=== PATIENT | female | born 1955 | race Two or more races ===

== ENCOUNTER 2017-03-01 09:26 | Inpatient (IN) | payer MEDICARE, MEDICAID ==
[~2017-03-01] VITALS: Ht 162.6 cm; Wt 68.5 kg
[2017-03-01] MEDS ORDERED: Sodium Chloride 500ML 500 ML IV ONE (09:28)
[2017-03-01 09:31] VITALS: BP 141/69
--- NOTE | 2017-03-01 09:36 | Emergency Room Report ---
History of Present Illness General Chief Complaint: Seizure Source: Patient, Medical Record, EMS Present Illness HPI Patient presents with paramedics were reports of seizure activity Patient is from senior care it was witnessed to have tonic-clonic seizure Patient reports that she was smoking heavily than usual Denies any chest pain Denies any headache patient did have trauma to the left tongue denies any focal weakness denies any neuropathy Denies any nausea vomiting Patient's history has been reviewed for history of seizures Allergies: Coded Allergies: PENICILLINS (Verified Allergy, Unknown, 03/01/17) Patient History Past Medical History: see triage record Pertinent Family History: none Last Menstrual Period: na Now: No Reviewed Nursing Documentation: PMH: Agreed, PSxH: Agreed Nursing Documentation-PMH Past Medical History: No History, Except For Hx COPD: Yes History Of Psychiatric Problem: Yes - depression, etoh abuse, insomnia, anxiety , paranoid schizophrenia Review of Systems All Other Systems: negative except mentioned in HPI Physical Exam Vital Signs Date Time Temp Pulse Resp B/P (MAP) Pulse Ox O2 Delivery O2 Flow Rate FiO2 03/01/17 09:16 98.4 114 18 141/69 98 Room Air Sp02 EP Interpretation: reviewed, normal General Appearance: well appearing, no apparent distress Head: normocephalic, atraumatic Eyes: bilateral eye PERRL, bilateral eye EOMI ENT: hearing grossly normal, normal pharynx, TMs + canals normal, uvula midline , other - trauma to the left anterior tongue Neck: full range of motion, supple, no meningismus, no bony tend Respiratory: lungs clear, normal breath sounds, no rhonchi, no respiratory distress, no retraction, no accessory muscle use Cardiovascular #1: normal peripheral pulses, regular rate, rhythm, no edema, no gallop, no JVD, no murmur Gastrointestinal: normal bowel sounds, non tender, soft, no mass, no organomegaly, non-distended, no guarding, no hernia, no pulsatile mass, no rebound Genitourinary: no CVA tenderness Musculoskeletal: normal inspection Neurologic: oriented x3, responsive, 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, motor strength/ tone normal, sensory intact Psychiatric: mood/affect normal Skin: normal color, no rash, warm/dry, palpation normal Lymphatic: normal inspection, no adenopathy Medical Decision Making Diagnostic Impression: Primary Impression: Seizure Additional Impression: New onset seizure ER Course Patient is a fairly complex patient with multiple differential to consideration including but not limited to cardiac cardiopulmonary and vascular emergencies, neurosurgical neurological pathology as well Patient's CT head along with baseline labs were appropriate Patient is provided with Lisseth here in the ER given that this is a new onset and the patient's receptors patient is admitted for further care Labs Test 03/01/17 09:29 03/01/17 09:34 Urine Color Pale yellow Urine Appearance Clear Urine pH 5 (4.5-8.0) Urine Specific [place] 1.015 (1.005-1.035) Urine Protein 1+ (NEGATIVE) Urine Glucose (UA) Negative (NEGATIVE) Urine Ketones Negative (NEGATIVE) Urine Occult Blood 2+ (NEGATIVE) Urine Nitrite Negative (NEGATIVE) Urine Bilirubin Negative (NEGATIVE) Urine Urobilinogen Normal MG/DL (0.0-1.0) Urine Leukocyte Esterase Negative (NEGATIVE) Urine RBC 2-4 /HPF (0 - 2) Urine WBC 0-2 /HPF (0 - 2) Urine Squamous Epithelial Cells Few /LPF (NONE/OCC) Urine Bacteria Few /HPF (NONE) White Blood Count 13.0 K/UL (4.8-10.8) Red Blood Count 4.35 M/UL (4.20-5.40) Hemoglobin 12.1 G/DL (12.0-16.0) Hematocrit 38.2 % (37.0-47.0) Mean Corpuscular Volume 88 FL (80-99) Mean Corpuscular Hemoglobin 27.7 PG (27.0-31.0) Mean Corpuscular Hemoglobin Concent 31.6 G/DL (32.0-36.0) Red Cell Distribution Width 15.4 % (11.6-14.8) Platelet Count 338 K/UL (150-450) Mean Platelet Volume 8.0 FL (6.5-10.1) Neutrophils (%) (Auto) 52.6 % (45.0-75.0) Lymphocytes (%) (Auto) 37.9 % (20.0-45.0) Monocytes (%) (Auto) 6.6 % (1.0-10.0) Eosinophils (%) (Auto) 1.0 % (0.0-3.0) Basophils (%) (Auto) 1.9 % (0.0-2.0) Sodium Level 137 MMOL/L (136-145) Potassium Level 3.8 MMOL/L (3.5-5.1) Chloride Level 101 MMOL/L (98-107) Carbon Dioxide Level 23 MMOL/L (21-32) Anion Gap 14 mmol/L (5-15) Blood Urea Nitrogen 18 mg/dL (7-18) Creatinine 1.0 MG/DL (0.55-1.30) Estimat Glomerular Filtration Rate 56.8 mL/min (>60) Glucose Level 155 MG/DL (74-106) Calcium Level 8.3 MG/DL (8.5-10.1) Total Bilirubin 0.2 MG/DL (0.2-1.0) Aspartate Amino Transf (AST/SGOT) 28 U/L (15-37) Alanine Aminotransferase (ALT/SGPT) 55 U/L (12-78) Alkaline Phosphatase 79 U/L (46-116) Total Creatine Kinase 128 U/L (26-308) Creatine Kinase MB 1.8 NG/ML (0.0-3.6) Creatine Kinase MB Relative Index 1.4 Troponin I 0.000 ng/mL (0.000-0.056) Total Protein 8.2 G/DL (6.4-8.2) Albumin 3.7 G/DL (3.4-5.0) Globulin 4.5 g/dL Albumin/Globulin Ratio 0.8 (1.0-2.7) Lipase 113 U/L (73-393) Labs Test 03/01/17 09:29 03/01/17 09:34 Urine Color Pale yellow Urine Appearance Clear Urine pH 5 (4.5-8.0) Urine Specific [place] 1.015 (1.005-1.035) Urine Protein 1+ (NEGATIVE) Urine Glucose (UA) Negative (NEGATIVE) Urine Ketones Negative (NEGATIVE) Urine Occult Blood 2+ (NEGATIVE) Urine Nitrite Negative (NEGATIVE) Urine Bilirubin Negative (NEGATIVE) Urine Urobilinogen Normal MG/DL (0.0-1.0) Urine Leukocyte Esterase Negative (NEGATIVE) Urine RBC 2-4 /HPF (0 - 2) Urine WBC 0-2 /HPF (0 - 2) Urine Squamous Epithelial Cells Few /LPF (NONE/OCC) Urine Bacteria Few /HPF (NONE) White Blood Count 13.0 K/UL (4.8-10.8) Red Blood Count 4.35 M/UL (4.20-5.40) Hemoglobin 12.1 G/DL (12.0-16.0) Hematocrit 38.2 % (37.0-47.0) Mean Corpuscular Volume 88 FL (80-99) Mean Corpuscular Hemoglobin 27.7 PG (27.0-31.0) Mean Corpuscular Hemoglobin Concent 31.6 G/DL (32.0-36.0) Red Cell Distribution Width 15.4 % (11.6-14.8) Platelet Count 338 K/UL (150-450) Mean Platelet Volume 8.0 FL (6.5-10.1) Neutrophils (%) (Auto) 52.6 % (45.0-75.0) Lymphocytes (%) (Auto) 37.9 % (20.0-45.0) Monocytes (%) (Auto) 6.6 % (1.0-10.0) Eosinophils (%) (Auto) 1.0 % (0.0-3.0) Basophils (%) (Auto) 1.9 % (0.0-2.0) Sodium Level 137 MMOL/L (136-145) Potassium Level 3.8 MMOL/L (3.5-5.1) Chloride Level 101 MMOL/L (98-107) Carbon Dioxide Level 23 MMOL/L (21-32) Anion Gap 14 mmol/L (5-15) Blood Urea Nitrogen 18 mg/dL (7-18) Creatinine 1.0 MG/DL (0.55-1.30) Estimat Glomerular Filtration Rate 56.8 mL/min (>60) Glucose Level 155 MG/DL (74-106) Calcium Level 8.3 MG/DL (8.5-10.1) Total Bilirubin 0.2 MG/DL (0.2-1.0) Aspartate Amino Transf (AST/SGOT) 28 U/L (15-37) Alanine Aminotransferase (ALT/SGPT) 55 U/L (12-78) Alkaline Phosphatase 79 U/L (46-116) Total Creatine Kinase 128 U/L (26-308) Creatine Kinase MB 1.8 NG/ML (0.0-3.6) Creatine Kinase MB Relative Index 1.4 Troponin I 0.000 ng/mL (0.000-0.056) Total Protein 8.2 G/DL (6.4-8.2) Albumin 3.7 G/DL (3.4-5.0) Globulin 4.5 g/dL Albumin/Globulin Ratio 0.8 (1.0-2.7) Lipase 113 U/L (73-393) Rhythm Strip Diag. Results EP Interpretation: yes Rate: 78 Rhythm: NSR, no PVC's, no ectopy Chest X-Ray Diagnostic Results Chest X-Ray Diagnostic Results : Chest X-Ray Ordered: Yes # of Views/Limited/Complete: 1 View Indication: Chest Pain EP Interpretation: Yes Interpretation: no consolidation, no effusion, no pneumothorax, other Impression: No acute disease Electronically Signed by: Amish Negron, DO CT/MRI/US Diagnostic Results CT/MRI/US Diagnostic Results : Impression CT head: no acute disease Last Vital Signs Date Time Temp Pulse Resp B/P (MAP) Pulse Ox O2 Delivery O2 Flow Rate FiO2 03/01/17 09:16 98.4 114 18 141/69 98 Room Air Status: improved Disposition: ADMITTED INPATIENT Condition: Serious AMISH NEGRON D.O. Mar 01, 2017 09:35
[2017-03-01 09:51] LABS: BASOPHILS % (AUTO) 1.9 % (0.0-2.0); HEMATOCRIT 38.2 % (37.0-47.0); HEMOGLOBIN 12.1 G/DL (12.0-16.0); LYMPHOCYTES % (AUTO) 37.9 % (20.0-45.0); MEAN CORPUSCULAR VOLUME 88 FL (80-99); MONOCYTES % (AUTO) 6.6 % (1.0-10.0); NEUTROPHILS % (AUTO) 52.6 % (45.0-75.0); PLATELET COUNT 338 K/UL (150-450); RED BLOOD COUNT 4.35 M/UL (4.20-5.40); RED CELL DISTRIBUTION WIDTH 15.4 % (11.6-14.8)
[2017-03-01 10:03] LABS: ANION GAP 14 mmol/L (5-15); BLOOD UREA NITROGEN 18 mg/dL (7-18); CALCIUM 8.3 MG/DL (8.5-10.1); CARBON DIOXIDE 23 MMOL/L (21-32); CHLORIDE 101 MMOL/L (98-107); POTASSIUM 3.8 MMOL/L (3.5-5.1); SODIUM 137 MMOL/L (136-145)
--- NOTE | 2017-03-01 10:10 | Diagnostic Imaging Report ---
Indication: Seizure Technique: Continuous helical CT scanning of the head was performed utilizing automated exposure control without intravenous contrast material. Axial and coronal reconstructions were obtained. Comparison: None CT dose: Total DLP 1245.89 mGycm; CTDI vol 70.38 mGy Findings: There is no acute intracranial hemorrhage, mass effect or cortical edema. The ventricles, cisterns and sulci are within normal limits for age. The posterior fossa and fourth ventricle are unremarkable. Sellar and suprasellar regions are grossly unremarkable. Visualized mastoid air cells and paranasal sinuses are unremarkable. No focal lesions of the bony calvarium or soft tissues of the scalp are seen. Impression: No evidence of acute intracranial hemorrhage, mass effect or cortical edema. MRI may be obtained for more sensitive evaluation as clinically indicated. The CT scanner at [facility] is accredited by the [employer] and the scans are performed using protocols designed to limit radiation exposure to as low as reasonably achievable to attain images of sufficient resolution adequate for diagnostic evaluation.
--- NOTE | 2017-03-01 10:12 | Diagnostic Imaging Report ---
Indication: Chest pain Technique: XRAY Chest 1v Comparison: None Findings: Heart size and mediastinal contours are within normal limits given technique. There is no focal consolidation, pneumothorax or pleural effusion. Scoliosis with degenerative change of the thoracic spine. No acute osseous abnormality seen. Impression: No radiographic evidence of acute cardiopulmonary disease.
[2017-03-01 10:19] LABS: ALANINE AMINOTRANSFERASE 55 U/L (12-78); ALBUMIN 3.7 G/DL (3.4-5.0); ALBUMIN/GLOBULIN RATIO 0.8 (1.0-2.7); ALKALINE PHOSPHATASE 79 U/L (46-116); ASPARTATE AMINO TRANSFERASE 28 U/L (15-37); BILIRUBIN,TOTAL 0.2 MG/DL (0.2-1.0); CKMB 1.8 NG/ML (0.0-3.6); CREATINE KINASE 128 U/L (26-308)
[2017-03-01 10:28] LABS: APPEARANCE,URINE CLEAR; BILIRUBIN, URINE NEGATIVE (NEGATIVE); COLOR,URINE PALE YELLOW; GLUCOSE, URINE (UA) NEGATIVE (NEGATIVE); KETONES,URINE NEGATIVE (NEGATIVE); LEUKOCYTE ESTERASE ,URINE NEGATIVE (NEGATIVE); NITRITE,URINE NEGATIVE (NEGATIVE); PH,URINE 5 (4.5-8.0); PROTEIN,URINE 1+ (NEGATIVE); UROBILINOGEN,URINE NORMAL MG/DL (0.0-1.0)
[2017-03-01] MEDS ORDERED: ACETAMINOPHEN325 M1 ORAL ×2 (10:29→10:32)
[2017-03-01] MEDS ORDERED: COLACE100 MG ORAL (10:29)
[2017-03-01] MEDS ORDERED: MILK OF MA2400 MG/10 ORAL (10:29)
[2017-03-01] MEDS ORDERED: BISACODYL5 MG ORAL (10:29)
[2017-03-01] MEDS ORDERED: LEXAPRO20 MG ORAL (10:29)
[2017-03-01] MEDS ORDERED: FLEET ENEMA133 ML RECTAL (10:29)
[2017-03-01] MEDS ORDERED: ZYPREXA10 MG ORAL (10:29)
[2017-03-01] MEDS ORDERED: DEPAKOTE250 MG PO (10:29)
[2017-03-01] MEDS ORDERED: IBUPROFEN600 MG ORAL (10:29)
[2017-03-01] MEDS ORDERED: BISACODYL5 MG RC (10:32)
[2017-03-01] MEDS ORDERED: DUONEB 0.5-3(2.53 ML HHN (10:32)
[2017-03-01] MEDS ORDERED: LEVOTHYROXINE125 MCG ORAL (10:33)
[2017-03-01] MEDS ORDERED: levETIRAcetam 1,000mg/NS100ml 100 ML IVPB ONE (10:45)
[2017-03-01 11:15] VITALS: BP 136/97
[2017-03-01 12:57] VITALS: BP 119/77
[2017-03-01] MEDS ORDERED: Milk of Magnesia 30ml Ud ORAL PRN (13:00)
[2017-03-01] MEDS ORDERED: Albuterol 90mcg Inhaler 8gm INH PRN (13:00)
[2017-03-01] MEDS ORDERED: Fleet's Enema 133ml RECTAL PRN (13:00)
--- NOTE | 2017-03-01 14:04 | Neurology Progress Note ---
Objective Physical Exam Last Vital Signs Date Time Temp Pulse Resp B/P (MAP) Pulse Ox O2 Delivery O2 Flow Rate FiO2 03/01/17 12:57 97.2 93 20 119/77 93 Room Air Laboratory Tests Test 03/01/17 09:29 03/01/17 09:34 Urine Color Pale yellow Urine Appearance Clear Urine pH 5 (4.5-8.0) Urine Specific [place] 1.015 (1.005-1.035) Urine Protein 1+ (NEGATIVE) H Urine Glucose (UA) Negative (NEGATIVE) Urine Ketones Negative (NEGATIVE) Urine Occult Blood 2+ (NEGATIVE) H Urine Nitrite Negative (NEGATIVE) Urine Bilirubin Negative (NEGATIVE) Urine Urobilinogen Normal MG/DL (0.0-1.0) Urine Leukocyte Esterase Negative (NEGATIVE) Urine RBC 2-4 /HPF (0 - 2) H Urine WBC 0-2 /HPF (0 - 2) Urine Squamous Epithelial Cells Few /LPF (NONE/OCC) Urine Bacteria Few /HPF (NONE) White Blood Count 13.0 K/UL (4.8-10.8) H Red Blood Count 4.35 M/UL (4.20-5.40) Hemoglobin 12.1 G/DL (12.0-16.0) Hematocrit 38.2 % (37.0-47.0) Mean Corpuscular Volume 88 FL (80-99) Mean Corpuscular Hemoglobin 27.7 PG (27.0-31.0) Mean Corpuscular Hemoglobin Concent 31.6 G/DL (32.0-36.0) L Red Cell Distribution Width 15.4 % (11.6-14.8) H Platelet Count 338 K/UL (150-450) Mean Platelet Volume 8.0 FL (6.5-10.1) Neutrophils (%) (Auto) 52.6 % (45.0-75.0) Lymphocytes (%) (Auto) 37.9 % (20.0-45.0) Monocytes (%) (Auto) 6.6 % (1.0-10.0) Eosinophils (%) (Auto) 1.0 % (0.0-3.0) Basophils (%) (Auto) 1.9 % (0.0-2.0) Sodium Level 137 MMOL/L (136-145) Potassium Level 3.8 MMOL/L (3.5-5.1) Chloride Level 101 MMOL/L (98-107) Carbon Dioxide Level 23 MMOL/L (21-32) Anion Gap 14 mmol/L (5-15) Blood Urea Nitrogen 18 mg/dL (7-18) Creatinine 1.0 MG/DL (0.55-1.30) Estimat Glomerular Filtration Rate 56.8 mL/min (>60) Glucose Level 155 MG/DL (74-106) H Calcium Level 8.3 MG/DL (8.5-10.1) L Total Bilirubin 0.2 MG/DL (0.2-1.0) Aspartate Amino Transf (AST/SGOT) 28 U/L (15-37) Alanine Aminotransferase (ALT/SGPT) 55 U/L (12-78) Alkaline Phosphatase 79 U/L (46-116) Total Creatine Kinase 128 U/L (26-308) Creatine Kinase MB 1.8 NG/ML (0.0-3.6) Creatine Kinase MB Relative Index 1.4 Troponin I 0.000 ng/mL (0.000-0.056) Total Protein 8.2 G/DL (6.4-8.2) Albumin 3.7 G/DL (3.4-5.0) Globulin 4.5 g/dL Albumin/Globulin Ratio 0.8 (1.0-2.7) L Lipase 113 U/L (73-393) Impression/Recommendations Problems: (1) single seizure episode (2) Schizophrenia Status: unchanged Recommendations # [id number] KAY CONNOLLY Mar 01, 2017 14:04
[2017-03-01] MEDS ORDERED: LORazepam Inj 2mg/ml 1ml IV PRN (14:45)
[2017-03-01 16:00] VITALS: BP 107/64
[2017-03-01 16:19] LABS: CHOLESTEROL 201 MG/DL (< 200); HDL CHOLESTEROL 66 MG/DL (40-60); TRIGLYCERIDES 158 MG/DL (30-150)
[2017-03-01] MEDS: ZyPREXA Zydis 10mg tab ORAL SCH (18:00)
[2017-03-01 20:00] VITALS: BP 107/69
[2017-03-01] MEDS: Depakote ER 500mg tab ORAL SCH (20:27)
[2017-03-01] MEDS: Heparin 5000 units/ml inj SUBQ SCH (20:30)
--- NOTE | 2017-03-01 20:56 | History & Physical ---
History and Physical History & Physicial Job ID: [id number] Vahe Tai Mar 01, 2017 20:56
[2017-03-01 22:00] VITALS: BP 164/92
--- NOTE | 2017-03-01 23:15 | Consultation ---
DATE OF CONSULTATION: 03/01/2017 NEUROLOGICAL CONSULTATION CONSULTING PHYSICIAN: Elan Alston M.D. REQUESTING PHYSICIAN: Ruslan Donis D.O. HISTORY OF PRESENT ILLNESS: The patient is a 61-year-old female, resident of a nursing facility, was brought to this hospital for assessment of exacerbation of seizure disorder. The patient was reluctant to communicate and information was obtained mainly from her records and my conversation with the medical staff now that the patient resides in a nursing facility for the last few days when she was noted to have generalized clonic-tonic seizure episode. They felt that over the last few days, she was smoking heavily "more than usual." She was brought to the emergency room. Blood pressure 141/69, heart rate of 114, and temperature 98.4. The patient described as being normocephalic and atraumatic with her neuro exam described as normal. Her initial diagnostic studies included lab work with CBC indicating the WBC 13.0. Chemistry panel, blood sugar 155, calcium 8.3, normal BUN and creatinine, and normal troponin and lipase. Chest x-ray, no evidence of acute cardiopulmonary disease. CT scan of the brain, no evidence of acute intracranial abnormalities. No mass lesion. No midline shift. Since admission to present, the patient described as being drowsy, reluctant to eat or converse, lying in bed covered with blankets. No further seizure activities were reported. PAST MEDICAL HISTORY: The patient has a history of chronic psychiatric disorder presumably paranoid schizophrenia, chronic kidney disease, history of chronic pain syndrome and alcohol abuse. It is not clear if the patient ever had seizure disorder in the past. MEDICATIONS: Her treatment at home included albuterol. She is on Depakote presumably for behavioral abnormalities, receiving 1000 mg at nighttime; ibuprofen; Lexapro 20 mg; levothyroxine; and she is on Zyprexa 10 mg b.i.d.; and Tylenol for pain management. ALLERGIES: Penicillin. FAMILY HISTORY: Unavailable. REVIEW OF SYMPTOMS: Unable to obtain due to the patient's status. PHYSICAL EXAMINATION: GENERAL: A well-developed, well-nourished female, lying in bed, covered with a blanket, very reluctant to be examined stating "just go away, I don't want to talk." VITAL SIGNS: Stable. Blood pressure 119/77, temperature 97.2, heart rate of 93, and respirations of 20. HEENT: Head is normocephalic. There is no evidence of trauma. Eyes, ears, and throat are clear. MUSCULOSKELETAL EXAMINATION: Appears normal as she was with no evidence of trauma. Peripheral pulses 1+ and symmetric. MENTAL STATUS: Drowsy, but arousable. Refusing to be examined. Refusing to continue conversation. She refused her food, which is near her bed. CRANIAL NERVE II: Pupils both responding to light and accommodation. Extraocular movements full range. CRANIAL NERVE V: Normal corneal responses. CRANIAL NERVE VII: No facial asymmetry. CRANIAL NERVE VIII: Grossly normal hearing. CRANIAL NERVES IX THROUGH XII: Within normal limits. MOTOR EXAMINATION: Able to lift arms and legs against gravity. No involuntary movement. Deep tendon reflexes 1+ and symmetric with downgoing toes on both sides. SENSORY EXAMINATION: Normal to pin stimulation. Gait not tested, but the patient reported that she is feeling weak and she cannot walk, although admitted no use of a cane or walker in the past. IMPRESSION: 1. History of single generalized clonic-tonic seizure episode. Rule out chronic seizure disorder (incomplete information). 2. Chronic psychiatric disorder. 3. History of alcohol abuse. 4. History of chronic pain syndrome. RECOMMENDATION: 1. We will try to obtain more information through nursing facility and contacting her family. 2. EEG. 3. MRI of the brain without contrast. 4. Observe for any paroxysmal events. 5. Maintain Depakote 500 mg b.i.d. Recheck liver function. We will follow with you. Thank you for allowing me to see this interesting patient in neurological consultation. Elan Alston M.D. DR: MORA JOB#: [id number] CC:
[2017-03-02] VITALS: BP 114/64
[2017-03-02 04:00] VITALS: BP 113/75
[2017-03-02] MEDS: Levothyroxine 125mcg tab ORAL SCH (06:24)
[2017-03-02 07:22] LABS: BASOPHILS % (AUTO) 1.2 % (0.0-2.0); EOSINOPHILS % (AUTO) 1.7 % (0.0-3.0); HEMATOCRIT 32.4 % (37.0-47.0); HEMOGLOBIN 10.3 G/DL (12.0-16.0); LYMPHOCYTES % (AUTO) 37.7 % (20.0-45.0); MEAN CORPUSCULAR VOLUME 87 FL (80-99); MONOCYTES % (AUTO) 8.7 % (1.0-10.0); NEUTROPHILS % (AUTO) 50.7 % (45.0-75.0); PLATELET COUNT 267 K/UL (150-450); RED BLOOD COUNT 3.73 M/UL (4.20-5.40); RED CELL DISTRIBUTION WIDTH 15.5 % (11.6-14.8); WHITE BLOOD COUNT 9.7 K/UL (4.8-10.8)
--- NOTE | 2017-03-02 07:30 | History and Physical Report ---
DATE OF ADMISSION: 03/01/2017 NOTE: POOR AUDIO I am covering for Dr. Ruslan Donis. HISTORY OF PRESENT ILLNESS: The patient is a pleasant 61-year-old female 00:15 admission at [facility]. She has a past medical history significant for schizophrenia, seizure disorder, at this time presents to the ER with seizure activity, noted to have a tonic-clonic seizure, which was witnessed, we have consulted Neurology for further evaluation and care at this time. Currently did not have any seizures, however, is refusing all care including IV lines and medications. PAST MEDICAL HISTORY: As noted above. ALLERGIES: Penicillin. SOCIAL HISTORY: No alcohol, tobacco, or illicit drug use. Lives in [facility] facility. REVIEW OF SYSTEMS: A 12-point review of systems is otherwise negative besides as noted in the HPI. PHYSICAL EXAMINATION: GENERAL: In no acute distress. VITAL SIGNS: Reviewed. PULMONARY: Decreased breath sounds. CARDIOVASCULAR: Regular rate. No S3 or S4. ABDOMEN: Soft, nontender, and nondistended. EXTREMITIES: A 1+ edema. LABORATORY DATA: WBC 18,000, platelet count 338,000, 01:22 BUN 18, creatinine 1. Triglycerides 01:27. ASSESSMENT AND PLAN: 1. Neurological seizure, tonic colonic, has been seen by Neurology service, has been administered Keppra intravenous as well as Depakote. Continue further management per Neurology service. The patient continues to have seizures even while on medication over the past month, generally has two or three seizures. 2. Schizophrenia is being managed by Psychiatry service. Currently refusing all care. Have consult with Dr. Mcgee. 3. Leukocytosis likely secondary to recent seizure reactive process. 4. Bacteriuria, asymptomatic, did not require antibiotics. 5. Allergy to penicillin. 6. Chronic obstructive pulmonary disease. 7. Depression. I appreciate territory sales consultant care. Vahe Tai M.D. DR: Thomas JOB#: [id number] CC:
[2017-03-02 07:43] LABS: ALANINE AMINOTRANSFERASE 44 U/L (12-78); ALBUMIN 2.9 G/DL (3.4-5.0); ALBUMIN/GLOBULIN RATIO 0.8 (1.0-2.7); ALKALINE PHOSPHATASE 65 U/L (46-116); ANION GAP 9 mmol/L (5-15); ASPARTATE AMINO TRANSFERASE 23 U/L (15-37); BILIRUBIN,TOTAL 0.2 MG/DL (0.2-1.0); BLOOD UREA NITROGEN 16 mg/dL (7-18); CARBON DIOXIDE 26 MMOL/L (21-32); CHLORIDE 108 MMOL/L (98-107); CREATININE 0.8 MG/DL (0.55-1.30); POTASSIUM 3.8 MMOL/L (3.5-5.1); SODIUM 143 MMOL/L (136-145)
[2017-03-02 08:15] VITALS: BP 113/73
[2017-03-02] MEDS: ZyPREXA Zydis 10mg tab ORAL SCH ×2 (08:46→17:04)
[2017-03-02] MEDS: Docusate 100mg cap ORAL SCH (08:46)
[2017-03-02] MEDS: Heparin 5000 units/ml inj SUBQ SCH ×2 (08:46→21:00)
[2017-03-02 12:07] VITALS: BP 119/75
[2017-03-02] MEDS ORDERED: Tubing IV Secondary IV ONE (14:36)
[2017-03-02 16:15] VITALS: BP 124/80
--- NOTE | 2017-03-02 19:54 | General Progress Note ---
Assessment/Plan Assessment/Plan ASSESSMENT AND RECS: 1. Recurrent seizures, tonic colonic, has been seen by Neurology service, has been administered Keppra intravenous as well as Depakote. ==> Continue further management per Neurology service. The patient continues to have seizures even while on medication over the past month, generally has two or three seizures. 2. Schizophrenia is being managed by Psychiatry service. Currently refusing all care. Have consult with Dr. Mcgee. --> ativan prn per Dr. Mcgee 3. Leukocytosis likely secondary to recent seizure reactive process. Has improved. 4. Bacteriuria, asymptomatic, did not require antibiotics. 5. Allergy to penicillin. 6. Chronic obstructive pulmonary disease. 7. Depression. Subjective Constitutional: Denies: no symptoms, chills, diaphoresis, fever, malaise, weakness, other HEENT: Denies: no symptoms, eye pain, blurred vision, tearing, double vision, ear pain, ear discharge, nose pain, nose congestion, throat pain, throat swelling, mouth pain, mouth swelling, other Cardiovascular: Denies: no symptoms, chest pain, edema, irregular heart rate, lightheadedness, palpitations, syncope, other Respiratory: Denies: no symptoms, cough, orthopnea, shortness of breath, SOB with excertion, SOB at rest, sputum, stridor, wheezing, other Gastrointestinal/Abdominal: Denies: no symptoms, abdomen distended, abdominal pain, black stools, tarry stools, blood in stool, constipated, diarrhea, difficulty swallowing, nausea, poor appetite, poor fluid intake, rectal bleeding , vomiting, other Genitourinary: Denies: no symptoms, burning, discharge, frequency, flank pain, hematuria, incontinence, pain, urgency, other Neurologic/Psychiatric: Denies: no symptoms, anxiety, depressed, emotional problems, headache, numbness, paresthesia, pre-existing deficit, seizure, tingling, tremors, weakness, other Endocrine: Denies: no symptoms, excessive sweating, flushing, intolerance to cold, intolerance to heat, increased hunger, increased thirst, increased urine, unexplained weight gain, unexplained weight loss, other Hematologic/Lymphatic: Denies: no symptoms, anemia, easy bleeding, easy bruising, other Allergies: Coded Allergies: PENICILLINS (Verified Allergy, Unknown, 03/01/17) Objective Last 24 Hour Vital Signs Date Time Temp Pulse Resp B/P (MAP) Pulse Ox O2 Delivery O2 Flow Rate FiO2 03/02/17 16:15 98.7 67 21 124/80 97 Room Air 03/02/17 12:07 97.9 80 20 119/75 99 Room Air 03/02/17 09:29 70 16 Room Air 21 03/02/17 08:15 98.4 68 21 113/73 99 03/02/17 04:00 98.6 92 21 113/75 92 03/02/17 04:00 Room Air 03/02/17 00:00 98.0 94 21 114/64 95 03/02/17 00:00 Room Air 03/01/17 22:00 97.5 65 20 164/92 92 03/01/17 20:12 88 16 Room Air 21 03/01/17 20:00 Room Air 03/01/17 20:00 98.2 93 20 107/69 90 Intake and Output 03/01/17 03/02/17 19:00 07:00 Intake Total 640 ml 1200 ml Balance 640 ml 1200 ml Intake Oral 240 ml IV Total 400 ml 1200 ml # Voids 1 3 Laboratory Tests 03/02/17 04:35: White Blood Count 9.7, Red Blood Count 3.73L, Hemoglobin 10.3L, Hematocrit 32.4L , Mean Corpuscular Volume 87, Mean Corpuscular Hemoglobin 27.6, Mean Corpuscular Hemoglobin Concent 31.8L, Red Cell Distribution Width 15.5H, Platelet Count 267, Mean Platelet Volume 8.0, Neutrophils (%) (Auto) 50.7, Lymphocytes (%) (Auto) 37.7, Monocytes (%) (Auto) 8.7, Eosinophils (%) (Auto) 1.7, Basophils (%) (Auto) 1.2, Sodium Level 143, Potassium Level 3.8, Chloride Level 108H, Carbon Dioxide Level 26, Anion Gap 9, Blood Urea Nitrogen 16, Creatinine 0.8, Estimat Glomerular Filtration Rate > 60, Glucose Level 84, Calcium Level 7.0L, Total Bilirubin 0.2, Aspartate Amino Transf (AST/SGOT) 23, Alanine Aminotransferase (ALT/SGPT) 44, Alkaline Phosphatase 65, Total Protein 6.6, Albumin 2.9L, Globulin 3.7, Albumin/Globulin Ratio 0.8L, Vitamin B12 Level 594 Height (Feet): 5 Height (Inches): 4.00 Weight (Pounds): 151 EENT: normal ENT inspection Neck: non-tender Cardiovascular: normal peripheral pulses Respiratory/Chest: lungs clear Abdomen: no organomegaly Vahe Tai Mar 02, 2017 19:54
[2017-03-02 20:00] VITALS: BP 139/93
--- NOTE | 2017-03-02 20:13 | General Progress Note ---
Assessment/Plan Problem List: (1) Seizure ICD Codes: R56.9 - Unspecified convulsions SNOMED: 46976286 (2) Schizophrenia ICD Codes: F20.9 - Schizophrenia, unspecified SNOMED: 02245960 Status: progressing Assessment/Plan new onset of seizure afebrile\ neurology consult seizure meds per neurology moniter for lyte abnormality as well Subjective ROS Limited/Unobtainable: Yes Allergies: Coded Allergies: PENICILLINS (Verified Allergy, Unknown, 03/01/17) Objective Last 24 Hour Vital Signs Date Time Temp Pulse Resp B/P (MAP) Pulse Ox O2 Delivery O2 Flow Rate FiO2 03/02/17 19:54 74 16 Room Air 21 03/02/17 16:15 98.7 67 21 124/80 97 Room Air 03/02/17 12:07 97.9 80 20 119/75 99 Room Air 03/02/17 09:29 70 16 Room Air 21 03/02/17 08:15 98.4 68 21 113/73 99 03/02/17 04:00 98.6 92 21 113/75 92 03/02/17 04:00 Room Air 03/02/17 00:00 98.0 94 21 114/64 95 03/02/17 00:00 Room Air 03/01/17 22:00 97.5 65 20 164/92 92 Intake and Output 03/01/17 03/02/17 19:00 07:00 Intake Total 640 ml 1200 ml Balance 640 ml 1200 ml Intake Oral 240 ml IV Total 400 ml 1200 ml # Voids 1 3 Laboratory Tests 03/02/17 04:35: White Blood Count 9.7, Red Blood Count 3.73L, Hemoglobin 10.3L, Hematocrit 32.4L , Mean Corpuscular Volume 87, Mean Corpuscular Hemoglobin 27.6, Mean Corpuscular Hemoglobin Concent 31.8L, Red Cell Distribution Width 15.5H, Platelet Count 267, Mean Platelet Volume 8.0, Neutrophils (%) (Auto) 50.7, Lymphocytes (%) (Auto) 37.7, Monocytes (%) (Auto) 8.7, Eosinophils (%) (Auto) 1.7, Basophils (%) (Auto) 1.2, Sodium Level 143, Potassium Level 3.8, Chloride Level 108H, Carbon Dioxide Level 26, Anion Gap 9, Blood Urea Nitrogen 16, Creatinine 0.8, Estimat Glomerular Filtration Rate > 60, Glucose Level 84, Calcium Level 7.0L, Total Bilirubin 0.2, Aspartate Amino Transf (AST/SGOT) 23, Alanine Aminotransferase (ALT/SGPT) 44, Alkaline Phosphatase 65, Total Protein 6.6, Albumin 2.9L, Globulin 3.7, Albumin/Globulin Ratio 0.8L, Vitamin B12 Level 594 Height (Feet): 5 Height (Inches): 4.00 Weight (Pounds): 151 General Appearance: confused Amish Oconnor MD Mar 02, 2017 20:13
[2017-03-02] MEDS: Depakote ER 500mg tab ORAL SCH (20:59)
[2017-03-02] MEDS: LORazepam 0.5mg tab ORAL PRN (20:59)
--- NOTE | 2017-03-02 22:46 | Consultation ---
History of Present Illness General Date patient seen: Mar 01, 2017 Chief Complaint: Seizure Present Illness HPI 61-year-old female with hx of agitation and schizoaffective d/o She has a past medical history significant for schizophrenia, seizure disorder, at this time presents to the ER with seizure activity, the pt is uncooperative and refusing care Allergies: Coded Allergies: PENICILLINS (Verified Allergy, Unknown, 03/01/17) Medication History Scheduled Divalproex Sodium* (Depakote*), 1,000 MG PO HS, (Reported) Docusate Sodium* (Colace*), 100 MG ORAL DAILY, (Reported) Escitalopram Oxalate* (Lexapro*), 20 MG ORAL DAILY, (Reported) Levothyroxine Sodium* (Levothyroxine Sodium*), 125 MCG ORAL DAILY, (Reported) Olanzapine* (Zyprexa*), 10 MG ORAL BID, (Reported) Scheduled PRN Acetaminophen* (Acetaminophen 325MG Tablet*), 1,000 MG ORAL Q6H PRN for Mild Pain/Temp > 100.5, (Reported) Bisacodyl* (Dulcolax*), 10 MG RC DAILY PRN for Constipation, (Reported) Ibuprofen* (Motrin*), 600 MG ORAL Q8H PRN for For Pain, (Reported) Ipratropium/Albuterol Sulfate (DuoNeb 0.5-3(2.5)mg/3ml), 3 ML HHN Q4HR PRN for Shortness of Breath, (Reported) Magnesium Hydroxide* (Milk Of Magnesia*), 30 ML ORAL HS PRN for Constipation, ( Reported) Na Phos,M-B/Na Phos,Di-Ba* (Fleet Enema*), 133 ML RECTAL DAILY PRN for Constipation, (Reported) Patient History History Provided By: Patient Healthcare decision maker Resuscitation status Full Code Advanced Directive on File Review of Systems Psychiatric: Reports: prior hx, anxiety, depressed feelings, emotional problems , hallucinations Physical Exam General Appearance: no apparent distress, alert, agitated Last 24 Hour Vital Signs Date Time Temp Pulse Resp B/P (MAP) Pulse Ox O2 Delivery O2 Flow Rate FiO2 03/02/17 20:00 97.7 84 20 139/93 95 Room Air 03/02/17 19:54 74 16 Room Air 21 03/02/17 16:15 98.7 67 21 124/80 97 Room Air 03/02/17 12:07 97.9 80 20 119/75 99 Room Air 03/02/17 09:29 70 16 Room Air 21 03/02/17 08:15 98.4 68 21 113/73 99 03/02/17 04:00 98.6 92 21 113/75 92 03/02/17 04:00 Room Air 03/02/17 00:00 98.0 94 21 114/64 95 03/02/17 00:00 Room Air Intake and Output 03/01/17 03/02/17 19:00 07:00 Intake Total 640 ml 1200 ml Balance 640 ml 1200 ml Intake Oral 240 ml IV Total 400 ml 1200 ml # Voids 1 3 Laboratory Tests Test 03/02/17 04:35 White Blood Count 9.7 K/UL (4.8-10.8) Red Blood Count 3.73 M/UL (4.20-5.40) L Hemoglobin 10.3 G/DL (12.0-16.0) L Hematocrit 32.4 % (37.0-47.0) L Mean Corpuscular Volume 87 FL (80-99) Mean Corpuscular Hemoglobin 27.6 PG (27.0-31.0) Mean Corpuscular Hemoglobin Concent 31.8 G/DL (32.0-36.0) L Red Cell Distribution Width 15.5 % (11.6-14.8) H Platelet Count 267 K/UL (150-450) Mean Platelet Volume 8.0 FL (6.5-10.1) Neutrophils (%) (Auto) 50.7 % (45.0-75.0) Lymphocytes (%) (Auto) 37.7 % (20.0-45.0) Monocytes (%) (Auto) 8.7 % (1.0-10.0) Eosinophils (%) (Auto) 1.7 % (0.0-3.0) Basophils (%) (Auto) 1.2 % (0.0-2.0) Sodium Level 143 MMOL/L (136-145) Potassium Level 3.8 MMOL/L (3.5-5.1) Chloride Level 108 MMOL/L (98-107) H Carbon Dioxide Level 26 MMOL/L (21-32) Anion Gap 9 mmol/L (5-15) Blood Urea Nitrogen 16 mg/dL (7-18) Creatinine 0.8 MG/DL (0.55-1.30) Estimat Glomerular Filtration Rate > 60 mL/min (>60) Glucose Level 84 MG/DL (74-106) Calcium Level 7.0 MG/DL (8.5-10.1) L Total Bilirubin 0.2 MG/DL (0.2-1.0) Aspartate Amino Transf (AST/SGOT) 23 U/L (15-37) Alanine Aminotransferase (ALT/SGPT) 44 U/L (12-78) Alkaline Phosphatase 65 U/L (46-116) Total Protein 6.6 G/DL (6.4-8.2) Albumin 2.9 G/DL (3.4-5.0) L Globulin 3.7 g/dL Albumin/Globulin Ratio 0.8 (1.0-2.7) L Vitamin B12 Level 594 PG/ML (193-986) Height (Feet): 5 Height (Inches): 4.00 Weight (Pounds): 151 Medications Current Medications Medications (Trade) Dose Ordered Sig/Edmund Route PRN Reason Start Time Stop Time Status Last Admin Dose Admin Acetaminophen (Tylenol) 650 mg Q6H PRN ORAL Mild Pain/Temp > 100.5 03/01/17 13:00 03/31/17 12:59 Albuterol Sulfate (Proventil MDI) 2 puff Q4H PRN INH Shortness of Breath 03/01/17 13:00 03/31/17 12:59 Bisacodyl (Dulcolax) 10 mg DAILYPRN PRN RECTAL Constipation 03/01/17 13:00 03/31/17 12:59 Divalproex Sodium (Depakote ER) 1,000 mg QHS ORAL 03/01/17 21:00 03/31/17 20:59 03/01/17 20:27 Docusate Sodium (Colace) 100 mg DAILY ORAL 03/02/17 09:00 04/01/17 08:59 Escitalopram Oxalate (Lexapro) 20 mg DAILY ORAL 03/02/17 09:00 04/01/17 08:59 03/02/17 08:43 Heparin Sodium (Porcine) (Heparin 5000 units/ml) 5,000 units EVERY 12 HOURS SUBQ 03/01/17 21:00 03/31/17 20:59 03/01/17 20:30 Ibuprofen (Motrin) 600 mg Q6H PRN ORAL Severe Pain (Pain Scale 7-10) 03/01/17 13:00 03/31/17 12:59 Levothyroxine Sodium (Synthroid) 125 mcg DAILY@0630 ORAL 03/02/17 06:30 04/01/17 06:29 Lorazepam (Ativan 2mg/ml 1ml) 2 mg Q2H PRN IV For Seizures 03/01/17 14:45 03/08/17 14:44 Lorazepam (Ativan) 1 mg Q4H PRN ORAL For Anxiety 03/02/17 16:45 03/09/17 16:44 03/02/17 20:59 Magnesium Hydroxide (Mom) 30 ml HSPRN PRN ORAL Constipation 03/01/17 13:00 03/31/17 12:59 Olanzapine (ZyPREXA Zydis) 10 mg BID ORAL 03/01/17 18:00 03/31/17 17:59 Sodium Chloride 1,000 ml @ 100 mls/hr Q10H IV 03/01/17 14:00 03/31/17 13:59 03/02/17 11:37 Sodium Phosphate (Fleet's Sodium Phosl Enema) 133 ml DAILYPRN PRN RECTAL Constipation 03/01/17 13:00 03/31/17 12:59 Assessment/Plan Assessment/Plan schizophrenia lexapro 20mg zyprexa 10 bid ativan prn Ernst Mcgee M.D. Mar 02, 2017 22:46
[2017-03-03] VITALS: BP 126/83
[2017-03-03] MEDS: LORazepam 0.5mg tab ORAL PRN ×2 (01:06→14:20)
[2017-03-03] MEDS: Levothyroxine 125mcg tab ORAL SCH (06:04)
[2017-03-03 07:28] LABS: BASOPHILS % (AUTO) 1.2 % (0.0-2.0); EOSINOPHILS % (AUTO) 2.9 % (0.0-3.0); HEMATOCRIT 34.3 % (37.0-47.0); HEMOGLOBIN 10.7 G/DL (12.0-16.0); LYMPHOCYTES % (AUTO) 35.7 % (20.0-45.0); MEAN CORPUSCULAR VOLUME 87 FL (80-99); MONOCYTES % (AUTO) 10.7 % (1.0-10.0); NEUTROPHILS % (AUTO) 49.4 % (45.0-75.0); PLATELET COUNT 264 K/UL (150-450); RED BLOOD COUNT 3.93 M/UL (4.20-5.40); RED CELL DISTRIBUTION WIDTH 15.7 % (11.6-14.8); WHITE BLOOD COUNT 8.6 K/UL (4.8-10.8)
[2017-03-03 07:49] LABS: ANION GAP 7 mmol/L (5-15); BLOOD UREA NITROGEN 15 mg/dL (7-18); CALCIUM 7.5 MG/DL (8.5-10.1); CARBON DIOXIDE 28 MMOL/L (21-32); CHLORIDE 106 MMOL/L (98-107); CREATININE 0.8 MG/DL (0.55-1.30); SODIUM 141 MMOL/L (136-145)
[2017-03-03 08:00] VITALS: BP 134/91
[2017-03-03] MEDS: Docusate 100mg cap ORAL SCH ×2 (09:00→09:01)
[2017-03-03] MEDS: Heparin 5000 units/ml inj SUBQ SCH ×3 (09:00→21:00)
[2017-03-03] MEDS: ZyPREXA Zydis 10mg tab ORAL SCH ×2 (09:01→17:15)
[2017-03-03 11:51] VITALS: BP 117/68
--- NOTE | 2017-03-03 12:12 | General Progress Note ---
Assessment/Plan Status: stable Assessment/Plan Schizophrenia agitation mdd -cont current meds -encourage her to take meds -provide her with RO/ST Subjective Date patient seen: Mar 03, 2017 Neurologic/Psychiatric: Reports: anxiety, depressed, emotional problems Allergies: Coded Allergies: PENICILLINS (Verified Allergy, Unknown, 03/01/17) Subjective the pt is agitated and angry. the pt stated that she does not want to return to [place]. the pt is uncooperative and refuses meds Objective Last 24 Hour Vital Signs Date Time Temp Pulse Resp B/P (MAP) Pulse Ox O2 Delivery O2 Flow Rate FiO2 03/03/17 11:51 97.9 76 19 117/68 93 Room Air 03/03/17 08:00 97.2 82 18 134/91 94 Room Air 03/03/17 00:00 98.1 77 20 126/83 95 Room Air 03/02/17 20:00 97.7 84 20 139/93 95 Room Air 03/02/17 19:54 74 16 Room Air 21 03/02/17 16:15 98.7 67 21 124/80 97 Room Air Intake and Output 03/02/17 03/03/17 19:00 07:00 Intake Total 1260 ml 360 ml Balance 1260 ml 360 ml Intake Oral 960 ml 360 ml IV Total 300 ml # Voids 4 Laboratory Tests 03/03/17 05:35: White Blood Count 8.6, Red Blood Count 3.93L, Hemoglobin 10.7L, Hematocrit 34.3L , Mean Corpuscular Volume 87, Mean Corpuscular Hemoglobin 27.3, Mean Corpuscular Hemoglobin Concent 31.2L, Red Cell Distribution Width 15.7H, Platelet Count 264, Mean Platelet Volume 7.8, Neutrophils (%) (Auto) 49.4, Lymphocytes (%) (Auto) 35.7, Monocytes (%) (Auto) 10.7H, Eosinophils (%) (Auto) 2.9, Basophils (%) (Auto) 1.2, Sodium Level 141, Potassium Level 4.0, Chloride Level 106, Carbon Dioxide Level 28, Anion Gap 7, Blood Urea Nitrogen 15, Creatinine 0.8, Estimat Glomerular Filtration Rate > 60, Glucose Level 82, Calcium Level 7.5L Height (Feet): 5 Height (Inches): 4.00 Weight (Pounds): 151 General Appearance: no apparent distress, alert, agitated, overweight Neurologic: alert, oriented x 3, responsive, depressed affect Ernst Mcgee M.D. Mar 03, 2017 12:12
--- NOTE | 2017-03-03 13:29 | General Progress Note ---
Assessment/Plan Problem List: (1) New onset seizure ICD Codes: R56.9 - Unspecified convulsions SNOMED: 39677557 (2) Schizophrenia ICD Codes: F20.9 - Schizophrenia, unspecified SNOMED: 86307238 (3) single seizure episode (4) Seizure ICD Codes: R56.9 - Unspecified convulsions SNOMED: 00622914 Status: stable, tolerating diet Assessment/Plan ot pt diet cbc bmp am transfer to [facility] Subjective Constitutional: Reports: weakness Allergies: Coded Allergies: PENICILLINS (Verified Allergy, Unknown, 03/01/17) All Systems: reviewed and negative except above Subjective sl agitated confused Objective Last 24 Hour Vital Signs Date Time Temp Pulse Resp B/P (MAP) Pulse Ox O2 Delivery O2 Flow Rate FiO2 03/03/17 11:51 97.9 76 19 117/68 93 Room Air 03/03/17 08:00 97.2 82 18 134/91 94 Room Air 03/03/17 00:00 98.1 77 20 126/83 95 Room Air 03/02/17 20:00 97.7 84 20 139/93 95 Room Air 03/02/17 19:54 74 16 Room Air 21 03/02/17 16:15 98.7 67 21 124/80 97 Room Air Intake and Output 03/02/17 03/03/17 19:00 07:00 Intake Total 1260 ml 360 ml Balance 1260 ml 360 ml Intake Oral 960 ml 360 ml IV Total 300 ml # Voids 4 Laboratory Tests 03/03/17 05:35: White Blood Count 8.6, Red Blood Count 3.93L, Hemoglobin 10.7L, Hematocrit 34.3L , Mean Corpuscular Volume 87, Mean Corpuscular Hemoglobin 27.3, Mean Corpuscular Hemoglobin Concent 31.2L, Red Cell Distribution Width 15.7H, Platelet Count 264, Mean Platelet Volume 7.8, Neutrophils (%) (Auto) 49.4, Lymphocytes (%) (Auto) 35.7, Monocytes (%) (Auto) 10.7H, Eosinophils (%) (Auto) 2.9, Basophils (%) (Auto) 1.2, Sodium Level 141, Potassium Level 4.0, Chloride Level 106, Carbon Dioxide Level 28, Anion Gap 7, Blood Urea Nitrogen 15, Creatinine 0.8, Estimat Glomerular Filtration Rate > 60, Glucose Level 82, Calcium Level 7.5L Height (Feet): 5 Height (Inches): 4.00 Weight (Pounds): 151 General Appearance: confused EENT: normal ENT inspection Neck: normal alignment Cardiovascular: normal peripheral pulses, normal rate, regular rhythm Respiratory/Chest: chest wall non-tender, lungs clear, normal breath sounds Abdomen: normal bowel sounds, non tender, soft Extremities: normal inspection Edema: no edema noted Arm (L), no edema noted Arm (R), no edema noted Leg (L), no edema noted Leg (R), no edema noted Pedal (L), no edema noted Pedal (R), no edema noted Generalized Neurologic: responsive, motor weakness Skin: normal pigmentation, warm/dry LIZ GARCIA Mar 03, 2017 13:29
--- NOTE | 2017-03-03 14:50 | Podiatric Progress Note ---
Assessment/Plan Patient Almaz Bolivar is a 61 year old female who was admitted on Mar 01, 2017 at 10: 20 with Problems: (1) Onychocryptosis (2) Pain in right foot (3) Pain in left foot Assessment/Plan debrided elongated nails x 10. patient had immediate relief after debridement. Subjective Allergies: Coded Allergies: PENICILLINS (Verified Allergy, Unknown, 03/01/17) Subjective patient is complaining for painful long nails. Patient states that she resides in an [facility] living and they don't have anyone to clip her nails. she states her nails are long uncomfortable and painful. Objective Exam Last 24 Hour Vital Signs Date Time Temp Pulse Resp B/P (MAP) Pulse Ox O2 Delivery O2 Flow Rate FiO2 03/03/17 14:17 79 20 Room Air 21 03/03/17 11:51 97.9 76 19 117/68 93 Room Air 03/03/17 08:00 97.2 82 18 134/91 94 Room Air 03/03/17 00:00 98.1 77 20 126/83 95 Room Air 03/02/17 20:00 97.7 84 20 139/93 95 Room Air 03/02/17 19:54 74 16 Room Air 21 03/02/17 16:15 98.7 67 21 124/80 97 Room Air Laboratory Tests Test 03/03/17 05:35 White Blood Count 8.6 K/UL (4.8-10.8) Red Blood Count 3.93 M/UL (4.20-5.40) L Hemoglobin 10.7 G/DL (12.0-16.0) L Hematocrit 34.3 % (37.0-47.0) L Mean Corpuscular Volume 87 FL (80-99) Mean Corpuscular Hemoglobin 27.3 PG (27.0-31.0) Mean Corpuscular Hemoglobin Concent 31.2 G/DL (32.0-36.0) L Red Cell Distribution Width 15.7 % (11.6-14.8) H Platelet Count 264 K/UL (150-450) Mean Platelet Volume 7.8 FL (6.5-10.1) Neutrophils (%) (Auto) 49.4 % (45.0-75.0) Lymphocytes (%) (Auto) 35.7 % (20.0-45.0) Monocytes (%) (Auto) 10.7 % (1.0-10.0) H Eosinophils (%) (Auto) 2.9 % (0.0-3.0) Basophils (%) (Auto) 1.2 % (0.0-2.0) Sodium Level 141 MMOL/L (136-145) Potassium Level 4.0 MMOL/L (3.5-5.1) Chloride Level 106 MMOL/L (98-107) Carbon Dioxide Level 28 MMOL/L (21-32) Anion Gap 7 mmol/L (5-15) Blood Urea Nitrogen 15 mg/dL (7-18) Creatinine 0.8 MG/DL (0.55-1.30) Estimat Glomerular Filtration Rate > 60 mL/min (>60) Glucose Level 82 MG/DL (74-106) Calcium Level 7.5 MG/DL (8.5-10.1) L Microbiology Date/Time Source Procedure Growth Status 03/01/17 10:00 Nasal Nares MRSA Culture - Final NO METHICILLIN RESISTANT STAPH AUREUS... Complete 03/01/17 10:00 Rectum VRE Culture - Final NO VANCOMYCIN RESISTANT ENTEROCOCCUS ... Complete Musculoskeletal Muscle strength grading: grade 5 - muscle strength of Vascular Pulses: 0 posterior tibial (L), 0 popliteal (R), 0 popliteal (L), 1 posterior tibial (R), 2 dorsalis pedis (R), 2 dorsalis pedis (L) Edema: no edema noted foot (L), no edema noted foot (R), no edema noted ankle ( L), no edema noted ankle (R), no edema noted leg (L), no edema noted leg (R) Pedal hair present: No Temperature: within normal limits Neurological Light touch: sensate bilateral Reflexes: 2+ achilles reflex s1 (R), 2+ achilles reflex s1 (L), 2+ achilles reflex s2 (R), 2+ achilles reflex s2 (L) Dermatological Dermatological: within nl limits Nail Abnormality nails noted to be incurvated elongated with pain up lateral and medial palpation. MASHA HEWITT Mar 03, 2017 14:50
[2017-03-03 16:00] VITALS: BP 127/73
--- NOTE | 2017-03-03 17:13 | Pulmonology Progress Note ---
Assessment/Plan Problems: (1) New onset seizure (2) Schizophrenia Assessment/Plan check MRI check EEG pt/ot dc planning Subjective ROS Limited/Unobtainable: No Constitutional: Reports: no symptoms HEENT: Repors: no symptoms Respiratory: Reports: no symptoms Allergies: Coded Allergies: PENICILLINS (Verified Allergy, Unknown, 03/01/17) Objective Last 24 Hour Vital Signs Date Time Temp Pulse Resp B/P (MAP) Pulse Ox O2 Delivery O2 Flow Rate FiO2 03/03/17 16:00 98.2 77 20 127/73 93 Room Air 03/03/17 14:17 79 20 Room Air 21 03/03/17 11:51 97.9 76 19 117/68 93 Room Air 03/03/17 08:00 97.2 82 18 134/91 94 Room Air 03/03/17 00:00 98.1 77 20 126/83 95 Room Air 03/02/17 20:00 97.7 84 20 139/93 95 Room Air 03/02/17 19:54 74 16 Room Air 21 Intake and Output 03/02/17 03/03/17 19:00 07:00 Intake Total 1260 ml 360 ml Balance 1260 ml 360 ml Intake Oral 960 ml 360 ml IV Total 300 ml # Voids 4 General Appearance: WD/WN HEENT: normocephalic, atraumatic Respiratory/Chest: chest wall non-tender, lungs clear Breasts: no masses Cardiovascular: normal peripheral pulses Abdomen: normal bowel sounds Genitourinary: normal external genitalia Extremities: no clubbing Skin: no lesions Microbiology Date/Time Source Procedure Growth Status 03/01/17 10:00 Nasal Nares MRSA Culture - Final NO METHICILLIN RESISTANT STAPH AUREUS... Complete 03/01/17 10:00 Rectum VRE Culture - Final NO VANCOMYCIN RESISTANT ENTEROCOCCUS ... Complete Laboratory Tests 03/03/17 05:35: White Blood Count 8.6, Red Blood Count 3.93L, Hemoglobin 10.7L, Hematocrit 34.3L , Mean Corpuscular Volume 87, Mean Corpuscular Hemoglobin 27.3, Mean Corpuscular Hemoglobin Concent 31.2L, Red Cell Distribution Width 15.7H, Platelet Count 264, Mean Platelet Volume 7.8, Neutrophils (%) (Auto) 49.4, Lymphocytes (%) (Auto) 35.7, Monocytes (%) (Auto) 10.7H, Eosinophils (%) (Auto) 2.9, Basophils (%) (Auto) 1.2, Sodium Level 141, Potassium Level 4.0, Chloride Level 106, Carbon Dioxide Level 28, Anion Gap 7, Blood Urea Nitrogen 15, Creatinine 0.8, Estimat Glomerular Filtration Rate > 60, Glucose Level 82, Calcium Level 7.5L Current Medications Medications (Trade) Dose Ordered Sig/Edmund Route PRN Reason Start Time Stop Time Status Last Admin Dose Admin Acetaminophen (Tylenol) 650 mg Q6H PRN ORAL Mild Pain/Temp > 100.5 03/01/17 13:00 03/31/17 12:59 Albuterol Sulfate (Proventil MDI) 2 puff Q4H PRN INH Shortness of Breath 03/01/17 13:00 03/31/17 12:59 Bisacodyl (Dulcolax) 10 mg DAILYPRN PRN RECTAL Constipation 03/01/17 13:00 03/31/17 12:59 Divalproex Sodium (Depakote ER) 1,000 mg QHS ORAL 03/01/17 21:00 03/31/17 20:59 03/01/17 20:27 Docusate Sodium (Colace) 100 mg DAILY ORAL 03/02/17 09:00 04/01/17 08:59 Escitalopram Oxalate (Lexapro) 20 mg DAILY ORAL 03/02/17 09:00 04/01/17 08:59 03/03/17 09:01 Heparin Sodium (Porcine) (Heparin 5000 units/ml) 5,000 units EVERY 12 HOURS SUBQ 03/01/17 21:00 03/31/17 20:59 03/01/17 20:30 Ibuprofen (Motrin) 600 mg Q6H PRN ORAL Severe Pain (Pain Scale 7-10) 03/01/17 13:00 03/31/17 12:59 03/02/17 22:47 Levothyroxine Sodium (Synthroid) 125 mcg DAILY@0630 ORAL 03/02/17 06:30 04/01/17 06:29 Lorazepam (Ativan 2mg/ml 1ml) 2 mg Q2H PRN IV For Seizures 03/01/17 14:45 03/08/17 14:44 Lorazepam (Ativan) 1 mg Q4H PRN ORAL For Anxiety 03/02/17 16:45 03/09/17 16:44 03/03/17 14:20 Magnesium Hydroxide (Mom) 30 ml HSPRN PRN ORAL Constipation 03/01/17 13:00 03/31/17 12:59 Olanzapine (ZyPREXA Zydis) 10 mg BID ORAL 03/01/17 18:00 03/31/17 17:59 03/03/17 09:01 Sodium Chloride 1,000 ml @ 100 mls/hr Q10H IV 03/01/17 14:00 03/31/17 13:59 03/02/17 11:37 Sodium Phosphate (Fleet's Sodium Phosl Enema) 133 ml DAILYPRN PRN RECTAL Constipation 03/01/17 13:00 03/31/17 12:59 GE DUNCAN Mar 03, 2017 17:13
--- NOTE | 2017-03-03 18:16 | Diagnostic Imaging Report ---
Indication: Altered mental status. Seizures. Bilateral lower extremity weakness. Technique: MRI the brain performed utilizing T1 sagittal, T2 axial, T1 FLAIR axial, T2 FLAIR axial, T2*GRE and diffusion axial images without gadolinium. Comparison: CT head 03/01/2017. Findings: No diffusion abnormalities are seen on diffusion weighted imaging to suggest acute infarct. No focus of abnormal signal dropout on GRE to suggest acute hemorrhage. Periventricular and supratentorial white matter T2 hyperintensity are seen without mass effect, a nonspecific finding. There is no definite evidence of hippocampal volume loss/atrophy; the bilateral hippocampi appear symmetric in volume and signal. There is no abnormal dilatation of the temporal horns of the lateral ventricles. There is no shift of midline structures. No significant extra-axial collections of fluid or blood are demonstrated. The sella and parasellar regions are unremarkable. Expected signal flow voids are seen of the vessels of the skull base. Visualized mastoid air cells and paranasal sinuses are unremarkable. No focal bony calvarium or soft tissue lesions are seen. Impression: No evidence of acute infarct, intracranial hemorrhage, mass effect or midline shift.
[2017-03-03 20:00] VITALS: BP 123/75
--- NOTE | 2017-03-03 20:16 | General Progress Note ---
Assessment/Plan Assessment/Plan ASSESSMENT AND RECS: 1. Recurrent seizures, tonic colonic, has been seen by Neurology service, has been administered Keppra intravenous as well as Depakote. ==> Continue further management per Neurology service. The patient continues to have seizures even while on medication over the past month, generally has two or three seizures. 2. Schizophrenia is being managed by Psychiatry service. Currently refusing all care. Have consult with Dr. Mcgee. --> ativan prn per Dr. Mcgee 3. Leukocytosis likely secondary to recent seizure reactive process. Has improved. 4. Bacteriuria, asymptomatic, did not require antibiotics. 5. Allergy to penicillin. 6. Chronic obstructive pulmonary disease. 7. Depression. 8. MADELIN -> see y renal Subjective Constitutional: Denies: no symptoms, chills, diaphoresis, fever, malaise, weakness, other Cardiovascular: Denies: no symptoms, chest pain, edema, irregular heart rate, lightheadedness, palpitations, syncope, other Gastrointestinal/Abdominal: Denies: no symptoms, abdomen distended, abdominal pain, black stools, tarry stools, blood in stool, constipated, diarrhea, difficulty swallowing, nausea, poor appetite, poor fluid intake, rectal bleeding , vomiting, other Genitourinary: Denies: no symptoms, burning, discharge, frequency, flank pain, hematuria, incontinence, pain, urgency, other Neurologic/Psychiatric: Denies: no symptoms, anxiety, depressed, emotional problems, headache, numbness, paresthesia, pre-existing deficit, seizure, tingling, tremors, weakness, other Hematologic/Lymphatic: Denies: no symptoms, anemia, easy bleeding, easy bruising, other Allergies: Coded Allergies: PENICILLINS (Verified Allergy, Unknown, 03/01/17) Subjective no events reported Objective Last 24 Hour Vital Signs Date Time Temp Pulse Resp B/P (MAP) Pulse Ox O2 Delivery O2 Flow Rate FiO2 03/03/17 16:00 98.2 77 20 127/73 93 Room Air 03/03/17 14:17 79 20 Room Air 21 03/03/17 11:51 97.9 76 19 117/68 93 Room Air 03/03/17 08:00 97.2 82 18 134/91 94 Room Air 03/03/17 00:00 98.1 77 20 126/83 95 Room Air Intake and Output 03/02/17 03/03/17 19:00 07:00 Intake Total 1260 ml 360 ml Balance 1260 ml 360 ml Intake Oral 960 ml 360 ml IV Total 300 ml # Voids 4 Laboratory Tests 03/03/17 05:35: White Blood Count 8.6, Red Blood Count 3.93L, Hemoglobin 10.7L, Hematocrit 34.3L , Mean Corpuscular Volume 87, Mean Corpuscular Hemoglobin 27.3, Mean Corpuscular Hemoglobin Concent 31.2L, Red Cell Distribution Width 15.7H, Platelet Count 264, Mean Platelet Volume 7.8, Neutrophils (%) (Auto) 49.4, Lymphocytes (%) (Auto) 35.7, Monocytes (%) (Auto) 10.7H, Eosinophils (%) (Auto) 2.9, Basophils (%) (Auto) 1.2, Sodium Level 141, Potassium Level 4.0, Chloride Level 106, Carbon Dioxide Level 28, Anion Gap 7, Blood Urea Nitrogen 15, Creatinine 0.8, Estimat Glomerular Filtration Rate > 60, Glucose Level 82, Calcium Level 7.5L Height (Feet): 5 Height (Inches): 4.00 Weight (Pounds): 151 General Appearance: no apparent distress EENT: normal ENT inspection Neck: normal inspection Cardiovascular: regular rhythm Respiratory/Chest: normal breath sounds Abdomen: soft Genitourinary/Rectal: normal rectal exam Extremities: non-tender Vahe Tai Mar 03, 2017 20:16
[2017-03-03] MEDS: Depakote ER 500mg tab ORAL SCH (21:00)
[2017-03-04] VITALS: BP 120/76
[2017-03-04 04:00] VITALS: BP 106/71
[2017-03-04] MEDS: Levothyroxine 125mcg tab ORAL SCH (06:20)
[2017-03-04 07:37] LABS: BASOPHILS % (AUTO) 1.2 % (0.0-2.0); EOSINOPHILS % (AUTO) 3.1 % (0.0-3.0); HEMATOCRIT 34.7 % (37.0-47.0); LYMPHOCYTES % (AUTO) 33.9 % (20.0-45.0); MEAN CORPUSCULAR VOLUME 87 FL (80-99); MONOCYTES % (AUTO) 8.8 % (1.0-10.0); PLATELET COUNT 286 K/UL (150-450); RED BLOOD COUNT 3.97 M/UL (4.20-5.40); RED CELL DISTRIBUTION WIDTH 15.5 % (11.6-14.8); WHITE BLOOD COUNT 8.2 K/UL (4.8-10.8)
[2017-03-04 07:59] LABS: ANION GAP 6 mmol/L (5-15); BLOOD UREA NITROGEN 16 mg/dL (7-18); CALCIUM 7.6 MG/DL (8.5-10.1); CARBON DIOXIDE 28 MMOL/L (21-32); CHLORIDE 105 MMOL/L (98-107); CREATININE 0.9 MG/DL (0.55-1.30); POTASSIUM 4.2 MMOL/L (3.5-5.1); SODIUM 139 MMOL/L (136-145)
--- NOTE | 2017-03-04 08:08 | General Progress Note ---
Assessment/Plan Problem List: (1) New onset seizure ICD Codes: R56.9 - Unspecified convulsions SNOMED: 69614235 (2) Schizophrenia ICD Codes: F20.9 - Schizophrenia, unspecified SNOMED: 28314675 (3) single seizure episode (4) Seizure ICD Codes: R56.9 - Unspecified convulsions SNOMED: 81984998 Status: stable, progressing, tolerating diet Assessment/Plan ot pt diet transfer to [facility] Subjective Constitutional: Reports: weakness Allergies: Coded Allergies: PENICILLINS (Verified Allergy, Unknown, 03/01/17) All Systems: reviewed and negative except above Subjective sl agitated confused Objective Last 24 Hour Vital Signs Date Time Temp Pulse Resp B/P (MAP) Pulse Ox O2 Delivery O2 Flow Rate FiO2 03/04/17 07:45 77 20 Room Air 21 03/04/17 04:00 98.7 74 20 106/71 92 03/04/17 04:00 Room Air 03/04/17 00:00 97.6 80 18 120/76 91 03/04/17 00:00 94 Room Air 03/03/17 20:58 73 20 Room Air 21 03/03/17 20:00 98.7 81 18 123/75 92 03/03/17 20:00 Room Air 03/03/17 16:00 98.2 77 20 127/73 93 Room Air 03/03/17 14:17 79 20 Room Air 03/03/17 11:51 97.9 76 19 117/68 93 Room Air Intake and Output 03/03/17 03/04/17 19:00 07:00 Intake Total 360 ml 300 ml Balance 360 ml 300 ml Intake Oral 360 ml 300 ml # Voids 2 Laboratory Tests 03/04/17 04:35: White Blood Count 8.2, Red Blood Count 3.97L, Hemoglobin 11.0L, Hematocrit 34.7L , Mean Corpuscular Volume 87, Mean Corpuscular Hemoglobin 27.6, Mean Corpuscular Hemoglobin Concent 31.6L, Red Cell Distribution Width 15.5H, Platelet Count 286, Mean Platelet Volume 7.6, Neutrophils (%) (Auto) 53.0, Lymphocytes (%) (Auto) 33.9, Monocytes (%) (Auto) 8.8, Eosinophils (%) (Auto) 3.1H, Basophils (%) (Auto) 1.2, Sodium Level 139, Potassium Level 4.2, Chloride Level 105, Carbon Dioxide Level 28, Anion Gap 6, Blood Urea Nitrogen 16, Creatinine 0.9, Estimat Glomerular Filtration Rate > 60, Glucose Level 126H, Calcium Level 7.6L Height (Feet): 5 Height (Inches): 4.00 Weight (Pounds): 151 General Appearance: lethargic, confused EENT: normal ENT inspection Neck: normal alignment Cardiovascular: normal peripheral pulses, normal rate, regular rhythm Respiratory/Chest: chest wall non-tender, lungs clear, normal breath sounds Abdomen: normal bowel sounds, non tender, soft Extremities: normal inspection Edema: no edema noted Arm (L), no edema noted Arm (R), no edema noted Leg (L), no edema noted Leg (R), no edema noted Pedal (L), no edema noted Pedal (R), no edema noted Generalized Neurologic: motor weakness Skin: normal pigmentation, warm/dry LIZ GARCIA Mar 04, 2017 08:08
[2017-03-04 08:43] VITALS: BP 114/76
[2017-03-04] MEDS: Heparin 5000 units/ml inj SUBQ SCH (09:00)
[2017-03-04] MEDS: Docusate 100mg cap ORAL SCH (09:00)
[2017-03-04] MEDS: ZyPREXA Zydis 10mg tab ORAL SCH (09:00)
[2017-03-04 11:30] VITALS: BP 126/77
[2017-03-04] MEDS: LORazepam 0.5mg tab ORAL PRN (12:36)
[2017-03-04 16:00] VITALS: BP 124/73
[2017-03-04] MEDS ORDERED: LORAZEPAM1 MG ORAL ×2 (16:12→16:14)
[2017-03-04] MEDS ORDERED: ALBUTEROL SULF8.5 GM INH (16:15)
[2017-03-04] MEDS ORDERED: IBUPROFEN600 MG ORAL (16:16)
[2017-03-04] MEDS ORDERED: ACETAMINOPHEN325 M1 ORAL (16:20)
[2017-03-04] MEDS ORDERED: HEPARIN SO5000 UNIT2 SUBQ (16:21)
--- NOTE | 2017-03-04 19:08 | Pulmonology Progress Note ---
Assessment/Plan Problems: (1) New onset seizure (2) Schizophrenia Assessment/Plan all reivewed f/u psych recommendation check EEG pt/ot dc planning Subjective ROS Limited/Unobtainable: No Interval Events: no new complains Allergies: Coded Allergies: PENICILLINS (Verified Allergy, Unknown, 03/01/17) Objective Last 24 Hour Vital Signs Date Time Temp Pulse Resp B/P (MAP) Pulse Ox O2 Delivery O2 Flow Rate FiO2 03/04/17 16:00 98.2 73 18 124/73 96 03/04/17 11:30 98.0 70 19 126/77 95 03/04/17 08:43 98.2 86 19 114/76 95 Room Air 03/04/17 07:45 77 20 Room Air 21 03/04/17 04:00 98.7 74 20 106/71 92 03/04/17 04:00 Room Air 03/04/17 00:00 97.6 80 18 120/76 91 03/04/17 00:00 94 Room Air 03/03/17 20:58 73 20 Room Air 21 03/03/17 20:00 98.7 81 18 123/75 92 03/03/17 20:00 Room Air Intake and Output 03/03/17 03/04/17 19:00 07:00 Intake Total 360 ml 300 ml Balance 360 ml 300 ml Intake Oral 360 ml 300 ml # Voids 2 Objective General Appearance: WD/WN HEENT: normocephalic, atraumatic Respiratory/Chest: chest wall non-tender, lungs clear Abdomen: normal bowel sounds, soft, non tender Genitourinary: normal external genitalia Skin: no lesions Laboratory Tests 03/04/17 04:35: White Blood Count 8.2, Red Blood Count 3.97L, Hemoglobin 11.0L, Hematocrit 34.7L , Mean Corpuscular Volume 87, Mean Corpuscular Hemoglobin 27.6, Mean Corpuscular Hemoglobin Concent 31.6L, Red Cell Distribution Width 15.5H, Platelet Count 286, Mean Platelet Volume 7.6, Neutrophils (%) (Auto) 53.0, Lymphocytes (%) (Auto) 33.9, Monocytes (%) (Auto) 8.8, Eosinophils (%) (Auto) 3.1H, Basophils (%) (Auto) 1.2, Sodium Level 139, Potassium Level 4.2, Chloride Level 105, Carbon Dioxide Level 28, Anion Gap 6, Blood Urea Nitrogen 16, Creatinine 0.9, Estimat Glomerular Filtration Rate > 60, Glucose Level 126H, Calcium Level 7.6L GE DUNCAN Mar 04, 2017 19:08
--- NOTE | 2017-03-04 19:24 | Cardiology Report ---
APPROVED REPORT EKG Measurement Heart [id number] Sinus tachycardia Otherwise normal ECG
--- NOTE | 2017-03-05 02:00 | Consultation ---
DATE OF CONSULTATION: 03/03/2017 NOTE: POOR AUDIO PSYCHOTHERAPY CONSULTATION PROGRESS NOTE CONSULTING PHYSICIAN: Jac Garcia M.D. TREATING ATTENDING PHYSICIAN: Ruslan Donis D.O. HISTORY OF PRESENT ILLNESS: The patient is a 61-year-old female patient from [facility]. The patient was admitted to the hospital for seizure disorder. She has a history of schizophrenia. The patient had a seizure at the nursing facility and was brought to the hospital for stabilization of symptoms. Since then, she has been talking to herself, responding to internal stimuli, cursing, yelling and screaming, very agitated participation in her treatment. For these reasons, she was referred for psychotherapeutic services. This clinician assessed the patient. The patient is delusional, disorganized, continues to respond to internal stimuli, her thoughts tangential. Speech is hyperverbal and pressured. The patient states that are waiting for her outside of the door and they are going to bite her. The patient is delusional at this time. She denies suicidal or homicidal thoughts of ideation. PAST MEDICAL HISTORY: The patient's past medical history includes a history of COPD. ALLERGIES: The patient is allergic to penicillin. SUBSTANCE ABUSE HISTORY: There is no indication of alcohol use, illicit substance use, or smoking cigarettes. PSYCHIATRIC HISTORY: The patient has a history of schizophrenia. The patient has been treated with psychotropic medications in the past. SOCIAL HISTORY: The patient is a 61-year-old female patient from Nursing Facility. She is a single female patient, financially sustained through [employer]. MENTAL STATUS EXAMINATION: The patient is alert, oriented to person and place. Her mood is irritable. Affect is labile. Thought process, disorganized. Thought content, delusional and paranoid. The patient has poor attention and concentration. Poor insight, judgment, and impulse control. DIAGNOSIS: Schizophrenia, paranoid type. PLAN: This clinician assessed the patient. Redirected the patient's disorganized thought process, encouraging the patient to participate in treatment milieu and coping skills, looking at increasing the patient's motivation towards her treatment. Continue with behavioral management. This clinician has reviewed the patient's chart and discussed the treatment with the treatment team. Jac Garcia PsyD. DR: KETTY JOB#: [id number] CC:
--- NOTE | 2017-03-05 10:12 | Discharge Summary ---
Discharge Summary Hospital Course Date of Admission Mar 01, 2017 at 10:20 Date of Discharge Mar 04, 2017 at 17:03 Admitting Diagnosis new onset seizure HPI Almaz Bolivar is a 61 year old female who was admitted on Mar 01, 2017 at 10: 20 for New Onset Seizures Hospital Course [id number] Discharge Discharge Disposition Patient was discharged to SNF/Subacute Facility(03) Discharge Diagnoses: Corie Arango NP Mar 05, 2017 10:12
--- NOTE | 2017-03-05 11:22 | General Progress Note ---
Assessment/Plan Status: stable, progressing Assessment/Plan Schizophrenia agitation mdd -cont current meds -encourage her to take meds -provide her with RO/ST Subjective Date patient seen: Mar 04, 2017 Neurologic/Psychiatric: Reports: anxiety, depressed, emotional problems Allergies: Coded Allergies: PENICILLINS (Verified Allergy, Unknown, 03/01/17) Subjective the pt is agitated and angry. the pt stated that she does not want to return to [facility]. the pt is uncooperative and refuses meds Objective Last 24 Hour Vital Signs Date Time Temp Pulse Resp B/P (MAP) Pulse Ox O2 Delivery O2 Flow Rate FiO2 03/04/17 16:00 98.2 73 18 124/73 96 03/04/17 11:30 98.0 70 19 126/77 95 Intake and Output 03/04/17 03/05/17 19:00 07:00 Intake Total 560 ml Output Total 500 ml Balance 60 ml Intake Oral 560 ml Output Urine Total 500 ml Height (Feet): 5 Height (Inches): 4.00 Weight (Pounds): 151 General Appearance: no apparent distress, alert Neurologic: alert, oriented x 3, responsive, depressed affect Ernst Mcgee M.D. Mar 05, 2017 11:22
--- NOTE | 2017-03-06 10:30 | Discharge Summary 2 SIG ---
DATE OF ADMISSION: 03/01/2017 DATE OF DISCHARGE: 03/04/2017 BRIEF HOSPITAL COURSE: The patient is a 61-year-old female with past medical history significant for schizophrenia and seizure disorder, came from [facility], presented to ED with seizure activity. She was noted to have tonic-clonic seizure, which was witnessed. On evaluation at ED, CAT scan of the brain showed no acute disease. Blood work showed no leukocytosis. She was given IV Keppra and was admitted to medical floor for evaluation of seizure disorder. She was seen by Dr. Alston. There were no further seizure activities noted. The patient has had a single episode of generalized tonic-clonic seizure. She was maintained on Depakote. She had been uncooperative and refusing care. She was seen by a psychiatrist and was given Lexapro and Zyprexa 10 mg twice daily. She had painful long nails, status post debridement x10 by imaging specialist. She was ordered to have an EEG done, however, the patient refused. She was given PT and OT and was eventually discharged back to [facility]. FINAL DIAGNOSES: 1. New-onset seizure. 2. Paranoid schizophrenia. 3. Leukocytosis, likely secondary to reactive process. 4. Bacteriuria, asymptomatic. 5. Chronic obstructive pulmonary disease. 6. Major depressive disorder. 7. Acute kidney injury. DISPOSITION: The patient was discharged back to SNF. DISCHARGE MEDICATIONS: Refer to medication list. Ruslan Donis D.O. I have been assigned to dictate discharge summary on this account and I was not involved in the patient's management. Corie Arango N.P. DR: GINA JOB#: [id number] CC:
== END 2017-03-04 17:03 | DRG 101 ==
LOC: EDBD 09:26 → EMR 09:55 → 4E 10:20 → EDBEDREQ 10:36
PROC: 0HBRXZZ Excision of Toe Nail, External Approach (ICD-10-PCS; principal; 2017-03-03)
DX: G40.409 Other generalized epilepsy and epileptic syndromes, not intractable, without status epilepticus (principal); N17.9 Acute kidney failure, unspecified; F20.0 Paranoid schizophrenia; F32.9 Major depressive disorder, single episode, unspecified; J44.9 Chronic obstructive pulmonary disease, unspecified; R82.71 Bacteriuria; G89.4 Chronic pain syndrome; F10.10 Alcohol abuse, uncomplicated; L60.0 Ingrowing nail; D72.829 Elevated white blood cell count, unspecified; Z88.0 Allergy status to penicillin; Z53.29 Procedure and treatment not carried out because of patient's decision for other reasons
CPT/HCPCS: 36415; 70450; 70551; 71010; 80048; 80053; 80061; 80164; 81003; 82550; 82553; 82607; 83690; 84484; 85025; 87081; 93005; 94664; 99285